=== PATIENT | male | born 1985 | race Caucasian/White ===

== ENCOUNTER 2016-06-11 05:13 | Inpatient (IN) | payer MEDICAID, OTHER ==
[~2016-06-11] VITALS: Ht 190.5 cm; Wt 107.0 kg
[2016-06-11] MEDS ORDERED: SODIUM CHLORIDE 0.9% 1,000 ML ONE (07:34)
[2016-06-11] MEDS ORDERED: KCL CR 20 MEQ TAB PO ONE (07:34)
[2016-06-11] MEDS ORDERED: NICOTINE 21 MG/24 HR TRANSDERM ONE (10:22)
[2016-06-11 11:25] VITALS: BP_SYST 139; RESP 16; TEMP 98.4
[2016-06-11 11:30] VITALS: BMI 29.5
[2016-06-11] MEDS ORDERED: MAG HYDROX 30 ML UDC PO PRN (12:05)
[2016-06-11] MEDS ORDERED: Ibuprofen 400 MG TAB PO PRN (12:05)
[2016-06-11] MEDS ORDERED: HALOPERIDOL 5 MG TAB PO PRN (12:05)
[2016-06-11] MEDS ORDERED: LORAZEPAM 2 MG TAB PO PRN (12:05)
[2016-06-11] MEDS ORDERED: ALU/MAG/SIM 30 ML UDC PO PRN (12:05)
[2016-06-11] MEDS ORDERED: ACETAMINOPHEN 325 MG TAB PO PRN (12:05)
[2016-06-11] MEDS ORDERED: HALOPERIDOL 5 MG/ML VIAL IM PRN (12:05)
[2016-06-11] MEDS ORDERED: DIPHENHYDRAMINE 50 MG CAP PO PRN (12:05)
[2016-06-11] MEDS ORDERED: DIPHENHYDRAMINE 50 MG/ML VIAL IM PRN (12:05)
[2016-06-11] MEDS ORDERED: LORAZEPAM 2 MG/ML VIAL IM PRN (12:05)
[2016-06-11] MEDS ORDERED: TRAZODONE 50 MG TAB PO PRN (12:05)
[2016-06-11] MEDS: NICOTINE 21 MG/24 HR TRANSDERM SCH (12:20)
[2016-06-12] MEDS: MULTIVITS/MINERALS (THERAGRAN M) TAB PO SCH (08:42)
[2016-06-12] MEDS: NICOTINE 21 MG/24 HR TRANSDERM SCH (08:43)
[2016-06-12 11:04] VITALS: BP_SYST 120; RESP 18; TEMP 97.6
[2016-06-12] MEDS: FLUOXETINE 20 MG CAP PO SCH (11:25)
[2016-06-12 19:09] VITALS: BP_SYST 149; RESP 18; TEMP 97.8
[2016-06-13 07:00] VITALS: BP_SYST 140; RESP 16; TEMP 97.7
[2016-06-13] MEDS: FLUOXETINE 20 MG CAP PO SCH (08:09)
[2016-06-13] MEDS: MULTIVITS/MINERALS (THERAGRAN M) TAB PO SCH (08:09)
[2016-06-13] MEDS: NICOTINE 21 MG/24 HR TRANSDERM SCH (08:10)
[2016-06-13 19:01] VITALS: BP_SYST 126; RESP 20; TEMP 98.6
[2016-06-14] MEDS: MULTIVITS/MINERALS (THERAGRAN M) TAB PO SCH (08:27)
[2016-06-14] MEDS: FLUOXETINE 20 MG CAP PO SCH (08:49)
[2016-06-14] MEDS: NICOTINE 21 MG/24 HR TRANSDERM SCH (08:50)
[2016-06-14 10:22] VITALS: BP_SYST 126; RESP 20; TEMP 98.6
== END 2016-06-14 13:12 | disposition home or self-care (01) | DRG 881 ==
LOC: ER 05:13 → EMR 10:16 → PSY 11:12
PROVIDERS: ADMIT Psychiatry & Neurology Psychiatry; ATTEND Psychiatry & Neurology Psychiatry
CPT/HCPCS: 96360; 96361